=== PATIENT | male | born 1950 | race Native Hawaiian/Other Pacific Islander ===

== ENCOUNTER 2018-07-28 19:44 | Emergency (ER) | payer OTHER ==
[2018-07-28 20:04] VITALS: RESP 18; TEMP 97.6; O2SAT 95
--- NOTE | 2018-07-28 21:45 | C.PDOC ---
History Of Present Illness 68 y/o male presents to the ED for evaluation of right lower leg pain, injured earlier today. 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 His right leg got caught between them. He now complains of pain to the lower tib/fib area of his right leg. Denies numbness, tingling, or extremity weakness. Time Seen by Provider: 07/28/18 20:34 Chief Complaint (Nursing): Lower Extremity Problem/Injury History Per: Patient History/Exam Limitations: no limitations Onset/Duration Of Symptoms: Hrs Current Symptoms Are (Timing): Still Present Past Medical History Reviewed: Historical Data, Nursing Documentation, Vital Signs Vital Signs: Last Vital Signs Temp 97.6 F 07/28/18 19:51 Pulse 88 07/28/18 19:51 Resp 18 07/28/18 19:51 BP 127/71 07/28/18 19:51 Pulse Ox 95 07/28/18 19:51 - Medical History PMH: HTN Family History: States: Unknown Family Hx - Social History Hx Alcohol Use: No Hx Substance Use: No Review Of Systems Except As Marked, All Systems Reviewed And Found Negative. Constitutional: Negative for: Fever Musculoskeletal: Positive for: Leg Pain Skin: Negative for: Rash Neurological: Negative for: Weakness, Numbness Physical Exam - Physical Exam Appears: Non-toxic, No Acute Distress Skin: Warm, Dry Neck: Normal ROM Chest: Symmetrical Respiratory: No Accessory Muscle Use Extremity: Normal ROM (+ able to move toes), Tenderness (to the distal right tib/fib), Capillary Refill (< 2 sec), Swelling (and ecchymosis to the distal right tib/fib) Pulses: Left Dorsalis Pedis: Normal, Right Dorsalis Pedis: Normal Neurological/Psych: Oriented x3 ED Course And Treatment O2 Sat by Pulse Oximetry: 95 (RA) Pulse Ox Interpretation: Normal Progress Note: X-rays taken of right ankle and right tib/fib. No fractures. Christiano wrap applied by RN. Patient is stable to be d/c home with PMD and Ortho follow up. Disposition - Disposition Referrals: Brooks Hunter III, MD [Staff Provider] - Disposition: HOME/ ROUTINE Disposition Time: 22:23 Condition: STABLE Additional Instructions: Follow up with PMD within 1-2 days. Return to ED if feel worse. Prescriptions: Ibuprofen [Motrin Tab] 400 mg PO Q8 #30 tab Instructions: Contusion (DC) Forms: [facility] (Sinhala), Work Excuse - Clinical Impression Clinical Impression: Contusion of leg - PA / LINEMAN A CLASS / Resident Statement MD/DO has reviewed & agrees with the documentation as recorded. - Scribe Statement The provider has reviewed the documentation as recorded by the Scribe Clara Moore All medical record entries made by the Scribe were at my direction and personally dictated by me. I have reviewed the chart and agree that the record accurately reflects my personal performance of the history, physical exam, medical decision making, and the department course for this patient. I have also personally directed, reviewed, and agree with the discharge instructions and disposition.
[2018-07-28 22:25] VITALS: BP 132/79; PULSE 95
--- NOTE | 2018-07-29 08:31 | RAD ---
Date of service: 07/28/2018 PROCEDURE: Right Ankle Radiographs. HISTORY: injury COMPARISON: None available. FINDINGS: BONES: Normal. No fracture. JOINTS: Normal. No osteoarthritis. Ankle mortise maintained. Talar dome intact SOFT TISSUES: Soft tissue swelling lower leg and ankle-most notable lateral perimalleolar OTHER FINDINGS: None. IMPRESSION: No fracture or dislocation is suggested. Mild soft tissue swelling in the area of interest is noted.
--- NOTE | 2018-07-29 08:32 | RAD ---
Date of service: 07/28/2018 PROCEDURE: Radiographs of the right tibia and fibula. HISTORY: injury COMPARISON: None available TECHNIQUE: Frontal and lateral views obtained. FINDINGS: BONES: No fracture or destructive lesion. JOINT SPACES: Unremarkable. OTHER FINDINGS: Soft tissue swelling increased density pre Achilles fat pad IMPRESSION: No fracture or lytic lesion. Ankle level most pronounced soft tissue swelling.
== END 2018-07-28 22:33 | disposition home or self-care (01) ==
LOC: C.ER 19:44
DX: S80.11XA Contusion of right lower leg, initial encounter (principal); W23.0XXA Caught, crushed, jammed, or pinched between moving objects, initial encounter